=== PATIENT | female | born 1980 | race Caucasian/White ===

== ENCOUNTER 2017-09-11 22:01 | Emergency (ER) | payer OTHER ==
[~2017-09-11] VITALS: Ht 149.9 cm; Wt 73.6 kg
[~2017-09-11 22:01] MED LIST: ASPIR 8181 M1 PO; ATIVAN1 M1 PO; CALCIUM +D & M1 EACH PO; CIPRODEX OTIC7.5 ML BOTH EARS; CRANBERRY400 MG PO; DAILY VITAMIN1 EAC5 PO; DEPAKOTE SPRIN125 MG PO; DEPAKOTE500 MG PO; DOXYCYCLINE HY100 MG PO; GABAPENTIN300 MG PO; GERI-LANTA LIQ355 ML PO; HEMOCYTE324 MG PO; KEFLEX500 MG PO; LEVOTHYROXINE25 MCG PO; LITHIUM CARBON300 M1 PO; LITHIUM8 MEQ/5 ML PO; LOTRISONE15 GM TP; LYRICA50 MG PO; METOPROLOL SUCC25 MG PO; METOPROLOL TART50 MG PO; MILK OF MAG W/360 ML PO; MILK OF MAGN PO; MOMETASONE FURO45 GM TP; NEURONTIN300 MG PO; NORTREL 1/351 TABLET PO; NORTREL1 EAC2 PO; OMEPRAZOLE20 M1 PO; OMEPRAZOLE40 M1 PO; OYST-CAL D, OS500 MG PO; PAIN & FEVER325 MG PO; QUETIAPINE FUM300 MG PO; RISPERDAL1 MG PO; SELENIUM SULFI180 ML TP; SELRX180 ML TP; SEROQUEL100 MG PO; SEROQUEL200 MG PO; SEROQUEL400 MG PO; SIMVASTATIN20 MG PO; THERAGRAN1 TABLET PO; TRAMADOL HCL50 MG PO; TRILAFON2 MG PO; TYLENOL325 M1 PO; VALPROIC A250 MG/5 M PO; ZOCOR20 MG PO
[2017-09-11 22:40] LABS: HEMATOCRIT 34.9 % (36.0-46.0); HEMOGLOBIN 11.7 G/DL (11.9-15.5); MCH 34.6 PG (29.0-34.0); MCHC 33.5 G/DL (30.0-36.0); MCV 103.3 FL (83-99); PLATELET COUNT 147 K/uL (156-360); RBC DIS.WIDTH-CV 11.6 % (11.8-14.6); RBC DIS.WIDTH-SD 44.3 % (39-53); RED BLOOD COUNT 3.38 M/uL (3.80-5.20); WHITE BLOOD COUNT 5.1 K/uL (4.1-10.2)
[2017-09-11 22:48] LABS: D-DIMER ELISA < 150.00 ng/mLDDU (<230)
[2017-09-11 22:49] LABS: ALBUMIN 3.6 g/dL (3.2-4.8); CHLORIDE 107 mEq/L (99-109); POTASSIUM 4.1 mEq/L (3.7-5.4); SODIUM 138 mEq/L (136-147)
[2017-09-11 22:52] LABS: GLUCOSE 100 mg/dL (70-99); TOTAL PROTEIN 5.8 g/dL (6.4-8.3)
[2017-09-11 22:53] LABS: TOTAL BILIRUBIN 0.3 mg/dL (0.0-1.0)
[2017-09-11 22:55] LABS: ALKALINE PHOSPHATASE 52 IU/L (3-129); CREATININE 0.7 mg/dL (0.6-1.3); GFR ESTIMATE (CALCULATED) > 59 mL/min/
[2017-09-11 22:56] LABS: UREA NITROGEN (BUN) 14 mg/dL (9-23)
[2017-09-11 22:57] LABS: AST (GOT) 24 IU/L (2-34)
[2017-09-11 22:58] LABS: ALT (GPT) 21 IU/L (3-49)
[2017-09-11 22:59] LABS: LIPASE 13 U/L (1.0-51.0)
[2017-09-11 23:00] LABS: TROP-I INTERPRETATION NEGATIVE; TROPONIN-I < 0.01 ng/mL (0.0-0.30)
[2017-09-11 23:55] LABS: VALPROIC ACID (DEPAKOTE) 112.2 MCG/ML (50-100)
[2017-09-12] MEDS ORDERED: ZOFRAN4 MG PO (00:42)
[2017-09-12] MEDS ORDERED: PEPCID20 MG PO (00:42)
[2017-09-12 01:09] LABS: TROP-I INTERPRETATION NEGATIVE; TROPONIN-I < 0.01 ng/mL (0.0-0.30)
[2017-09-12 01:50] VITALS: BP 109/70
== END 2017-09-12 01:52 ==
LOC: EME → EDBD 22:01 → EME 22:01
PROVIDERS: Emergency Medicine
DX: R07.89 Other chest pain (principal); K29.00 Acute gastritis without bleeding; I10 Essential (primary) hypertension; K21.9 Gastro-esophageal reflux disease without esophagitis; E78.5 Hyperlipidemia, unspecified; F70 Mild intellectual disabilities; Q96.9 Turner's syndrome, unspecified; E03.9 Hypothyroidism, unspecified; G47.30 Sleep apnea, unspecified; Z88.5 Allergy status to narcotic agent; Z88.2 Allergy status to sulfonamides; Z88.0 Allergy status to penicillin
CPT/HCPCS: 71046; 80053; 80164; 80178; 83690; 84484; 85027; 85379; 93005; 99281; 99284; J7030; S0028